=== PATIENT | female | born 2000 | race Caucasian/White ===

== ENCOUNTER 2022-11-26 12:15 | Emergency (ER) | payer OTHER ==
[2022-11-26] MEDS ORDERED: SODIUM CHLORIDE 0.9% 1,000 ML IV STA (12:53)
[2022-11-26] MEDS ORDERED: KETOROLAC 30 MG/ML VIAL IVP STA (12:54)
[2022-11-26 13:33] LABS: BASOPHILS # (AUTO) 0.1 10^3/uL (0.0-0.1); BASOPHILS % (AUTO) 0.6 %; EOSINOPHILS # (AUTO) 0.2 10^3/uL (0.0-0.7); EOSINOPHILS % (AUTO) 1.5 %; HCT - HEMATOCRIT 45.2 % (37.0-47.0); LYMPHOCYTES # (AUTO) 2.1 10^3/uL (1.5-3.5); LYMPHOCYTES % (AUTO) 17.6 %; MEAN CORPUSCULAR HEMOGLOBIN 30.5 pg (27.0-31.0); MEAN CORPUSCULAR HGB CONC 33.2 g/dL (32.0-36.0); MEAN CORPUSCULAR VOLUME 92.1 fL (81.0-99.0); MEAN PLATELET VOLUME 9.7 fL (7.9-10.8); NEUTROPHILS # (AUTO) 8.5 10^3/uL (1.5-6.6); PLT - PLATELET COUNT 354 10^3/uL (130-450); RED BLOOD COUNT 4.91 10^6/uL (4.20-5.40); WHITE BLOOD COUNT 11.9 x10^3/uL (4.8-10.8)
[2022-11-26 13:40] LABS: BILIRUBIN,URINE NEGATIVE (NEGATIVE); GLUCOSE, URINE (UA) NEGATIVE (NEGATIVE); KETONES,URINE (UA) NEGATIVE (NEGATIVE); LEUKOCYTE ESTERASE, URINE NEGATIVE (NEGATIVE); NITRITE,URINE NEGATIVE (NEGATIVE); OCCULT BLOOD,URINE MODERATE (NEGATIVE); PROTEIN,URINE NEGATIVE (NEGATIVE); UROBILINOGEN,URINE 0.2 (NORMAL) E.U./dL (NORMAL)
[2022-11-26 13:42] LABS: CLARITY,URINE CLEAR (CLEAR); HCG UR QUAL NEGATIVE
[2022-11-26 13:43] LABS: ALBUMIN 4.5 g/dL (3.2-5.5); ALBUMIN/GLOBULIN RATIO 1.5 (1.0-2.2); BILIRUBIN,TOTAL 0.4 mg/dL (0.2-1.0); CALCIUM 9.8 mg/dL (8.5-10.3); CREATININE 0.7 mg/dL (0.6-1.3); POTASSIUM 4.2 mmol/L (3.5-4.5); TOTAL PROTEIN 7.6 g/dL (6.4-8.9)
[2022-11-26 13:51] LABS: BACTERIA,URINE Rare /HPF (None Seen); RBC,URINE 0-5 /HPF (0-5); SQUAMOUS EPITHELIAL CELL,UR FEW Squamous (<= Few); WBC,URINE 0-3 /HPF (0-5)
--- NOTE | 2022-11-26 14:35 | ED Physician Documentation ---
PD HPI ABD PAIN - Stated complaint Stated Complaint: RT ABD/BACK PX, - Chief complaint Chief Complaint: Abd Pain - History obtained from History obtained from: Patient - Additional information Additional information: Patient is a 22-year-old female with a history of PCOS and endometriosis presenting for evaluation of right lower quadrant abdominal pain. Patient reports pain feels crampy and has been worse since yesterday. She only has some discomfort during her menstrual cycle but this feels worse. Reports associated nausea. Usually the pain gets better as her. Stops of but her bleeding stopped yesterday and she continues to have some pain. She tried ibuprofen yesterday without improvement. She has not taken any medications today. Denies dysuria or vaginal discharge or concerns for STIs. Reports occasionally feeling some pain in her back. No fever, chest pain or shortness of air. Denies prior abdominal surgeries. Review of Systems Constitutional: denies: Fever Cardiac: denies: Chest pain / pressure Respiratory: denies: Dyspnea GI: reports: Abdominal Pain : denies: Dysuria, Discharge Neurologic: denies: Headache PD PAST MEDICAL HISTORY - Past Medical History Past Medical History: Yes Cardiovascular: None Respiratory: None Neuro: None Endocrine/Autoimmune: None GI: None MEDICAL EQUIPMENT TECHNICIAN: Endometriosis, Ovarian cysts : None HEENT: None Psych: Depression, Anxiety Musculoskeletal: None Derm: None - Past Surgical History Past Surgical History: Yes /MEDICAL EQUIPMENT TECHNICIAN: Endometrial ablation - Present Medications Home Medications: Ambulatory Orders Medication Instructions Recorded Confirmed Ferrous Sulfate [Feosol] 325 mg PO DAILY 11/26/22 11/26/22 Medroxyprogesterone Acetate 10 mg PO DAILY 11/26/22 11/26/22 [Provera] Venlafaxine ER [Effexor ER] 75 mg PO DAILY 11/26/22 11/26/22 metFORMIN [Glucophage] 500 mg PO DAILY 11/26/22 11/26/22 - Allergies Allergies/Adverse Reactions: Allergies Allergy/AdvReac Type Severity Reaction Status Date / Time oxycodone AdvReac Itching Verified 11/26/22 12:25 - Social History Does the pt smoke?: No Smoking Status: Never smoker Does the pt drink ETOH?: Yes Does the pt have substance abuse?: Yes Substance Use and Type: Marijuana, CBD oil / Products - Immunizations Immunizations are current?: Yes PD ED PE NORMAL - General General: Alert and oriented X 3, No acute distress, Well developed/nourished - HEENT HEENT: Atraumatic, Moist mucous membranes - Neck Neck: Supple, no meningeal sign - Cardiac Cardiac: RRR, No murmur - Respiratory Respiratory: No respiratory distress, Clear bilaterally - Abdomen Abdomen: Normal bowel sounds, Soft, Non distended, Other (Right lower quadrant tenderness to palpation, no rebound, no guarding) - Back Back: No CVA TTP - Derm Derm: Warm and dry - Neuro Neuro: Normal speech Results - Vitals Vitals: Vital Signs - 24 hr 11/26/22 11/26/22 11/26/22 12:25 14:29 17:51 Temperature 37.2 C 35.6 C L 36 C L Heart Rate 78 73 73 Respiratory 18 16 18 Rate Blood Pressure 142/75 H 139/99 H O2 Saturation 98 100 100 Oxygen O2 Source Room air - Labs Labs: Laboratory Tests 11/26/22 11/26/22 11/26/22 13:19 13:19 13:24 WBC 11.9 H RBC 4.91 Hgb 15.0 Hct 45.2 MCV 92.1 MCH 30.5 MCHC 33.2 RDW 13.0 Plt Count 354 MPV 9.7 Neut # (Auto) 8.5 H Lymph # (Auto) 2.1 [place] # (Auto) 1.0 Eos # (Auto) 0.2 Baso # (Auto) 0.1 Absolute Nucleated RBC 0.00 Nucleated RBC % 0.0 Sodium 137 Potassium 4.2 Chloride 104 Carbon Dioxide 23 Anion Gap 10.0 BUN 8 Creatinine 0.7 Estimated GFR (MDRD) 105 Glucose 88 Calcium 9.8 Total Bilirubin 0.4 AST 18 ALT 35 Alkaline Phosphatase 77 Total Protein 7.6 Albumin 4.5 Globulin 3.1 Albumin/Globulin Ratio 1.5 Lipase 21 Urine Color YELLOW Urine Clarity CLEAR Urine pH 6.0 Ur Specific [place] 1.015 Urine Protein NEGATIVE Urine Glucose (UA) NEGATIVE Urine Ketones NEGATIVE Urine Occult Blood MODERATE H Urine Nitrite NEGATIVE Urine Bilirubin NEGATIVE Urine Urobilinogen 0.2 (NORMAL) Ur Leukocyte Esterase NEGATIVE Urine RBC 0-5 Urine WBC 0-3 Ur Squamous Epith Cells FEW Squamous Urine Bacteria Rare Ur Microscopic Review INDICATED Urine Culture Comments NOT INDICATED Urine HCG, Qual NEGATIVE PD Medical Decision Making - ED course Complexity details: reviewed results, re-evaluated patient, d/w patient ED course: Patient is a 22-year-old female with a history of endometriosis and PCOS presenting for evaluation of right lower abdominal pain. Has mild tenderness noted on exam which improved with IV Toradol. CBC, chemistries, urine analysis were obtained and reviewed and without significant findings other than mildly elevated white count of 11,000. Ultrasound was obtained which does not show any right-sided ovarian cyst but there is a left-sided ovarian cyst. There is good Doppler flow Bligh laterally and clinically her exam does not suggest torsion. A CT scan was also obtained which does not show signs of appendicitis. Patient has been feeling well here and is eager to go home. She understands need for close follow-up as well as concerning symptoms to return for. 1433 - Patient resting comfortably. Reviewed labs with her. Aware of plan for ultrasound and CT. Departure - Departure Disposition: Home, Self Care Clinical Impression: RLQ abdominal pain, Left ovarian cyst Condition: Stable Instructions: ED Abdominal Pain Female Non-Specific Abdominal Pain, ED Cyst Ovarian Follow-Up: [facility] [Provider Group] Comments: Your CT scan and ultrasound do not show any irregularities in the right lower part of your abdomen to explain your symptoms. You do have a cyst on your left ovary. There is good flow to both ovaries. I have included the name of the women's health clinic that you can call for follow-up regarding your ovarian cyst as well as for your history of PCOS and endometriosis. Please continue with anti-inflammatories such as ibuprofen or acetaminophen. Return to the ER with any worsening symptoms. Forms: PCP List Discharge Date/Time: 11/26/22 17:51
[2022-11-26 15:12] VITALS: BP 139/99; O2SAT 100
[2022-11-26] MEDS ORDERED: iohexoL-300 100 ML VIAL IVP ONE (16:32)
--- NOTE | 2022-11-26 16:45 | Ultrasound Report ---
PROCEDURE: Pelvic w/Doppler Complete INDICATIONS: R sided pain/PCOS TECHNIQUE: Real-time transabdominal scanning was performed of the pelvic organs, with image document ation. COMPARISON: None FINDINGS: Uterus: Uterus is anteverted and normal in size at 10.6 x 3.7 x 6.1 cm. The myometrium is homogeneo us. The endometrium measures 4.9 mm in combined thickness. Ovaries: The right ovary measures 3.2 x 2.0 x 2.0 cm, with a calculated ovarian volume of 6.7 cc. T he left ovary measures 4.5 x 2.6 x 3.5 cm, with a calculated ovarian volume of 21.4 cc. The ovaries have a normal sonographic appearance. Left ovarian cyst measures 2.2 x 1.7 x 2.8 No adnexal masses are seen. Both ovaries have appropriate vascularity Other: No free pelvic fluid. IMPRESSION: Left ovarian simple cyst without evidence of torsion Reviewed by: Mateus Boles MD on 11/26/2022 3:44 PM PRASHANT Approved by: Mateus Boles MD on 11/26/2022 3:44 PM AKDT Station ID: [id number]
--- NOTE | 2022-11-26 16:55 | CT Report ---
PROCEDURE: ABDOMEN/PELVIS W INDICATIONS: R sided pain CONTRAST: 100mL Omni 300 TECHNIQUE: After the administration of IV contrast, 5 mm thick sections acquired from the diaphragms to the symp hysis. 5 mm thick coronal and sagittal reformats were acquired. For radiation dose reduction, the f ollowing was used: automated exposure control, adjustment of mA and/or kV according to patient size. COMPARISON: PELVIC ultrasound from the same date. FINDINGS: Image quality: Excellent. Lung bases and heart: Unremarkable. Liver: No solid mass. Moderate to severe hepatic steatosis is seen, no discrete hepatic lesion. Gallbladder and biliary tree: Bladder is within normal limits. Spleen: No splenomegaly. Pancreas: No pancreatic ductal dilation. Adrenals: No adrenal nodule. Kidneys and ureters: No hydronephrosis. No renal cystic lesion which requires follow up. No solid mas s. Bowel and peritoneum: No bowel distension. No pathologic free fluid. Appendix is visualized and is wi thin normal limits. Lymph nodes: No central or retroperitoneal adenopathy. Vessels: No infrarenal aortic aneurysm. PELVIS Reproductive organs: Unremarkable. Simple appearing left ovarian cyst is seen better evaluated on pel naveen ultrasound from the same day. Bladder: No abnormal wall thickening, accounting for underdistension. Pelvic lymph nodes: No pelvic adenopathy by size criteria. Bones: No aggressive osseous abnormality. Other: No significant ventral or inguinal hernia. IMPRESSION: 1. Normal appendix. No bowel obstruction or abnormal bowel wall thickening. No abscess collection. No free fluid of free air. 2. Moderate to severe hepatic steatosis. No discrete hepatic lesion. Normal-appearing gallbladder. No biliary ductal dilatation. 3. Simple appearing left ovarian cyst better evaluated on pelvic ultrasound study. Reviewed by: Derrek Khanna MD on 11/26/2022 4:54 PM PDT Approved by: Derrek Khanna MD on 11/26/2022 4:54 PM PDT Station ID: [id number]
== END 2022-11-26 17:51 | disposition home or self-care (01) ==
LOC: ED 12:15
DX: R10.31 Right lower quadrant pain (principal); N83.292 Other ovarian cyst, left side
CPT/HCPCS: 36415; 74177; 76856; 80053; 81001; 81025; 83690; 85025; 93975; 96374; 99283; 99284; Q9967; 81003; 87086

== ENCOUNTER 2023-03-19 16:06 | Outpatient (CLI) | payer OTHER ==
[2023-03-19 20:44] LABS: BASOPHILS # (AUTO) 0.1 10^3/uL (0.0-0.1); BASOPHILS % (AUTO) 0.5 %; EOSINOPHILS # (AUTO) 0.2 10^3/uL (0.0-0.7); EOSINOPHILS % (AUTO) 1.4 %; HCT - HEMATOCRIT 43.4 % (37.0-47.0); HGB - HEMOGLOBIN 14.3 g/dL (12.0-16.0); LYMPHOCYTES # (AUTO) 2.9 10^3/uL (1.5-3.5); LYMPHOCYTES % (AUTO) 24.3 %; MEAN CORPUSCULAR HGB CONC 32.9 g/dL (32.0-36.0); MEAN CORPUSCULAR VOLUME 91.2 fL (81.0-99.0); MEAN PLATELET VOLUME 10.3 fL (7.9-10.8); MONOCYTES % (AUTO) 8.3 %; NEUTROPHILS # (AUTO) 7.7 10^3/uL (1.5-6.6); NEUTROPHILS % (AUTO) 65.1 %; PLT - PLATELET COUNT 359 10^3/uL (130-450); RED BLOOD COUNT 4.76 10^6/uL (4.20-5.40); RED CELL DISTRIBUTION WIDTH 13.1 % (12.0-15.0); WHITE BLOOD COUNT 11.8 x10^3/uL (4.8-10.8)
[2023-03-19 20:48] LABS: BILIRUBIN,URINE NEGATIVE (NEGATIVE); CLARITY,URINE CLEAR (CLEAR); GLUCOSE, URINE (UA) NEGATIVE (NEGATIVE); KETONES,URINE (UA) NEGATIVE (NEGATIVE); LEUKOCYTE ESTERASE, URINE NEGATIVE (NEGATIVE); NITRITE,URINE NEGATIVE (NEGATIVE); OCCULT BLOOD,URINE SMALL (NEGATIVE); PROTEIN,URINE NEGATIVE (NEGATIVE); UROBILINOGEN,URINE 0.2 (NORMAL) E.U./dL (NORMAL)
[2023-03-19 20:58] LABS: BACTERIA,URINE Moderate /HPF (None Seen); EPITHELIAL CELLS,UR FEW Transitional /HPF (<= Few); MUCUS,URINE Moderate Strands; SQUAMOUS EPITHELIAL CELL,UR MOD Squamous (<= Few); WBC,URINE 0-3 /HPF (0-5)
[2023-03-21 03:10] LABS: HCV AB Non Reactive (Non Reactive); HIV SCREEN 4TH GENERATION Non Reactive (Non Reactive)
[2023-03-21 05:12] LABS: HBsAG SCREEN Negative (Negative); RPR Non Reactive (Non Reactive)
[2023-03-21 08:10] LABS: VARICELLA-ZOSTER AB IGG <135 index (Immune >165)
== END 2023-03-19 16:07 | disposition home or self-care (01) ==
LOC: LAB.N 16:06
PROVIDERS: ATTEND Obstetrics & Gynecology
DX: Z34.90 Encounter for supervision of normal pregnancy, unspecified, unspecified trimester (principal)
CPT/HCPCS: 36415; 81001; 85025; 86592; 86762; 86787; 86803; 86850; 86900; 86901; 87086; 87340; 87389

== ENCOUNTER 2023-03-27 13:05 | Outpatient (CLI) | payer OTHER ==
--- NOTE | 2023-03-27 15:59 | Ultrasound Report ---
PROCEDURE: OB First Trimester w/TV INDICATIONS: POSITIVE TEST OUTSIDE/PRIOR DATING DATA: Last menstrual period (LMP): 01/30/2023. LMP-based estimated date of delivery (DYLAN): 11/06/2023. First dating scan (date and location): 03/27/2023. Estimated date of delivery (DYLAN) from first dating scan: 11/07/2023. TECHNIQUE: Real-time scanning was performed of the fetus and maternal pelvic organs, with image documentation. Endovaginal scanning was also performed to better visualize the fetus and maternal ovaries. COMPARISON: None. FINDINGS: Intrauterine gestational sac present. Embryo: Single living intrauterine gestation identified with estimated sonographic gestational age o f approximately 7 weeks and 6 days based off crown-rump length measurement of 1.49 cm. This correlate s with the 58.8 percentile. Heart rate: 160 bpm. Other: No perigestational fluid collection. Measurement variability in dating: +/- 4 weeks by LMP, +/- 7 days by mean sac diameter (use before 6 weeks gestation if crown-rump length not able to be measured), +/- 5 days by crown-rump length (6-12 weeks gestation). Maternal organs: Ovaries appear within normal limits. IMPRESSION: Single living intrauterine gestation with estimated sonographic gestational age of approximately 7 we eks and 6 days based off crown-rump length measurement. Estimated date of delivery is approximately . Recommend routine second trimester anatomy screening survey. Reviewed by: Joaquin Silva MD on 03/27/2023 3:57 PM PST Approved by: Joaquin Silva MD on 03/27/2023 3:57 PM PST Station ID: [id number]
== END 2023-03-27 13:06 | disposition home or self-care (01) ==
LOC: DI 13:05
PROVIDERS: ATTEND Obstetrics & Gynecology
DX: Z34.91 Encounter for supervision of normal pregnancy, unspecified, first trimester (principal)

== ENCOUNTER 2023-04-24 08:00 | Outpatient (CLI) | payer OTHER ==
[2023-04-24 15:56] LABS: BILIRUBIN,URINE NEGATIVE (NEGATIVE); GLUCOSE, URINE (UA) NEGATIVE (NEGATIVE); KETONES,URINE (UA) NEGATIVE (NEGATIVE); LEUKOCYTE ESTERASE, URINE NEGATIVE (NEGATIVE); NITRITE,URINE NEGATIVE (NEGATIVE); OCCULT BLOOD,URINE NEGATIVE (NEGATIVE); PROTEIN,URINE NEGATIVE (NEGATIVE); UROBILINOGEN,URINE 0.2 (NORMAL) E.U./dL (NORMAL)
[2023-04-24 16:10] LABS: BACTERIA,URINE Few /HPF (None Seen); CLARITY,URINE CLEAR (CLEAR); RBC,URINE None Seen /HPF (0-5); SQUAMOUS EPITHELIAL CELL,UR MANY Squamous (<= Few); WBC,URINE 0-3 /HPF (0-5)
[2023-04-24 20:19] LABS: CHLAMYDIA TRACHOMATIS DNA NEGATIVE (NEGATIVE); NEISSERIA GONORRHOEAE DNA NEGATIVE (NEGATIVE); TRICHOMONAS VAGINALIS DNA NEGATIVE (NEGATIVE)
== END 2023-04-24 23:59 | disposition home or self-care (01) ==
LOC: LAB.WC 08:00
PROVIDERS: ATTEND Obstetrics & Gynecology
DX: Z34.90 Encounter for supervision of normal pregnancy, unspecified, unspecified trimester (principal)
CPT/HCPCS: 81001; 87086; 87491; 87591; 87661

== ENCOUNTER 2023-05-16 08:00 | Outpatient (CLI) | payer OTHER ==
[2023-05-16 17:33] LABS: BILIRUBIN,URINE NEGATIVE (NEGATIVE); GLUCOSE, URINE (UA) NEGATIVE (NEGATIVE); KETONES,URINE (UA) NEGATIVE (NEGATIVE); LEUKOCYTE ESTERASE, URINE NEGATIVE (NEGATIVE); NITRITE,URINE NEGATIVE (NEGATIVE); OCCULT BLOOD,URINE NEGATIVE (NEGATIVE); PH,URINE 6.5 PH (5.0-7.5); PROTEIN,URINE NEGATIVE (NEGATIVE); UROBILINOGEN,URINE 0.2 (NORMAL) E.U./dL (NORMAL)
[2023-05-16 17:58] LABS: BACTERIA,URINE Many /HPF (None Seen); CLARITY,URINE CLEAR (CLEAR); RBC,URINE 0-5 /HPF (0-5); SQUAMOUS EPITHELIAL CELL,UR MANY Squamous (<= Few); WBC,URINE 0-3 /HPF (0-5)
[2023-05-16 18:36] LABS: CREATININE,URINE 131.6 mg/dL; PROTEIN/CREATININE RATIO,URINE 0.1 (<=0.2)
== END 2023-05-16 23:59 | disposition home or self-care (01) ==
LOC: LAB.WC 08:00
PROVIDERS: ATTEND Obstetrics & Gynecology
DX: O09.91 Supervision of high risk pregnancy, unspecified, first trimester (principal)
CPT/HCPCS: 81001; 82570; 84156; 87086

== ENCOUNTER 2023-05-24 09:38 | Outpatient (CLI) | payer OTHER ==
[2023-05-24 20:08] LABS: ESTIMATED AVERAGE GLUCOSE 100 mg/dL (70-100); HEMOGLOBIN A1c% 5.1 % (4.27-6.07)
== END 2023-05-24 09:39 | disposition home or self-care (01) ==
LOC: LAB.N 09:38
PROVIDERS: ATTEND Obstetrics & Gynecology
DX: O09.91 Supervision of high risk pregnancy, unspecified, first trimester (principal)
CPT/HCPCS: 36415; 83036

== ENCOUNTER 2023-05-27 07:52 | Outpatient (CLI) | payer OTHER | END 2023-05-27 07:53 | disposition home or self-care (01) | LOC: LAB 07:52 | PROVIDERS: ATTEND Obstetrics & Gynecology | DX: O99.211 Obesity complicating pregnancy, first trimester (principal); E66.9 Obesity, unspecified | CPT/HCPCS: 36415; 82950 ==

== ENCOUNTER 2023-06-23 15:08 | Outpatient (CLI) | payer OTHER ==
--- NOTE | 2023-06-23 17:09 | Ultrasound Report ---
PROCEDURE: OB Anatomy Scan INDICATIONS: SUPERVISION OF HIGH RISK OUTSIDE/PRIOR DATING DATA: Last menstrual period (LMP): 01/30/2023. LMP-based estimated date of delivery (DYLAN): 11/06/2023. First dating scan (date and location): 03/27/2023. Estimated date of delivery (DYLAN) from first dating scan: 11/07/2023. TECHNIQUE: Real-time scanning was performed of the fetus, with image documentation and biometric measurements. COMPARISON: 03/27/2023 FINDINGS: General: A single living intrauterine gestation is present. Presentation: Variable Placenta: Placental position is posterior, without previa. Amniotic fluid index: 17.1 cm, within normal limits for gestational age. heart rate: 137 beats per minute. Maternal cervical canal: 5 cm long; normal length is 2.5 cm or more. biometrics: Biparietal diameter: 4.9 cm, 20 weeks and 5 days, 62 percentile Head circumference: 18.3 cm, 20 weeks and 5 days, 52 percentile Abdominal circumference: 17.3 cm, 22 weeks and 2 days, 92 percentile Femur length: 3.2 cm, 19 weeks and 6 days, 22 percentile Estimated gestational age from initial scan: 20 weeks and 3 days Composite gestational age from present scan: 20 weeks and 6 days Estimated weight and percentile: 398 g, 81 percentile Measurement variability in biometric dating: +/- 10 days from 12-20 weeks gestation, +/- 2 weeks from 20-30 weeks gestation, +/- 3 weeks at 30 weeks gestation or later. Anatomic survey: Neuro: Ventricles are normal at less than 10 mm. Cisterna magna is normal at 3-11 mm. Cerebellum is normal in size and morphology. Nuchal skin fold: Normal at less than 6 mm between 14 and 20 weeks gestational age. Face: Nose and lips, facial profile are normal. Spine: No evidence for spina bifida. Heart: 4-chambered heart is present, with normal ventricular outflow tracts. Diaphragm: Diaphragm is intact. Stomach: Left-sided stomach is present. Kidneys: No hydronephrosis. Normal is less than 5 mm in 2nd trimester, less than 7 mm in 3rd trimester. Cord: 3 vessel cord has orthotopic insertion. Bladder: Normal in size. Extremities: All 4 extremities are visualized. IMPRESSION: Living intrauterine gestation at 20 weeks and 3 days. Concordant biometry on today's study. Routine anatomic survey without significant abnormality. Normal JUDY. Reviewed by: Idris James MD on 06/23/2023 5:07 PM PDT Approved by: Idris James MD on 06/23/2023 5:07 PM PDT Station ID: [id number]
== END 2023-06-23 15:09 | disposition home or self-care (01) ==
LOC: DI 15:08
PROVIDERS: ATTEND Obstetrics & Gynecology
DX: O09.92 Supervision of high risk pregnancy, unspecified, second trimester (principal); Z3A.20 20 weeks gestation of pregnancy

== ENCOUNTER 2023-08-09 10:25 | Outpatient (CLI) | payer OTHER ==
[2023-08-09 18:45] LABS: HCT - HEMATOCRIT 35.1 % (37.0-47.0); HGB - HEMOGLOBIN 10.9 g/dL (12.0-16.0); MEAN CORPUSCULAR HEMOGLOBIN 29.3 pg (27.0-31.0); MEAN CORPUSCULAR HGB CONC 31.1 g/dL (32.0-36.0); MEAN CORPUSCULAR VOLUME 94.4 fL (81.0-99.0); MEAN PLATELET VOLUME 9.9 fL (7.9-10.8); RED BLOOD COUNT 3.72 10^6/uL (4.20-5.40); RED CELL DISTRIBUTION WIDTH 12.7 % (12.0-15.0); WHITE BLOOD COUNT 14.3 x10^3/uL (4.8-10.8)
== END 2023-08-09 10:26 | disposition home or self-care (01) ==
LOC: LAB.N 10:25
PROVIDERS: ATTEND Obstetrics & Gynecology
DX: O09.892 Supervision of other high risk pregnancies, second trimester (principal); O99.212 Obesity complicating pregnancy, second trimester
CPT/HCPCS: 36415; 82950; 85027; 86592

== ENCOUNTER 2023-09-03 14:32 | Outpatient (CLI) | payer OTHER ==
--- NOTE | 2023-09-03 21:47 | Ultrasound Report ---
PROCEDURE: OB Follow up INDICATIONS: UTERINE SIZE DATE DISCREPANCY OUTSIDE/PRIOR DATING DATA: Last menstrual period (LMP): 01/30/2023. LMP-based estimated date of delivery (DYLAN): 11/06/2023. First dating scan (date and location): 03/27/2023. Estimated date of delivery (DYLAN) from first dating scan: 11/07/2023. The below data below was generated using the clinical DYLAN of 11/06/2023 TECHNIQUE: Real-time scanning was performed of the fetus, with image documentation and biometric measurements. Endovaginal scanning: Not performed. COMPARISON: OB ultrasound 06/23/2023 FINDINGS: General: A single living intrauterine gestation is present. Presentation: Vertex Placenta: Placental position is posterior, without previa. Amniotic fluid index: 18.2 cm, within normal limits for gestational age. Largest pocket 5.6 cm. heart rate: 143 beats per minute. Maternal cervical canal: Not well seen. biometrics: Biparietal diameter: 8.2 cm, 33 weeks 0 days. 93rd percentile. Head circumference: 30.7 cm, 34 weeks 2 days. 94th percentile. Abdominal circumference: 30.2 cm, 34 weeks 1 day. 99th percentile. Femur length: 6.0 cm, 31 weeks 2 days. 49th percentile. Estimated gestational age from initial scan: 30 weeks 6 days Composite gestational age from present scan: 33 weeks 1 day Estimated weight and percentile: 215 4 g, 98th percentile Measurement variability in biometric dating: +/- 10 days from 12-20 weeks gestation, +/- 2 weeks from 20-30 weeks gestation, +/- 3 weeks at 30 weeks gestation or more. IMPRESSION: 1. [place] living intrauterine at 33 weeks 1 day based on today's ultrasound. This is con cordant with the prior ultrasound +/- 3 weeks. Fetus is in the 90th percentile for weight. This is co ncerning for macrosomia. Vertex position. 2. Normal placenta and amniotic fluid. Reviewed by: Keny Liriano MD on 09/03/2023 9:46 PM PDT Approved by: Keny Liriano MD on 09/03/2023 9:46 PM PDT Station ID: [id number]
== END 2023-09-03 14:33 | disposition home or self-care (01) ==
LOC: DI 14:32
PROVIDERS: ATTEND Obstetrics & Gynecology
DX: O26.843 Uterine size-date discrepancy, third trimester (principal); O99.213 Obesity complicating pregnancy, third trimester; Z3A.33 33 weeks gestation of pregnancy

== ENCOUNTER 2023-10-16 21:39 | Outpatient (CLI) | payer OTHER ==
--- NOTE | 2023-10-17 12:01 | Ultrasound Report ---
PROCEDURE: OB Follow up INDICATIONS: UTERINE SIZE DATE DISCREPENCY OUTSIDE/PRIOR DATING DATA: Last menstrual period (LMP): 01/30/2023. LMP-based estimated date of delivery (DYLAN): 11/06/2023. First dating scan (date and location): 03/27/2023. Estimated date of delivery (DYLAN) from first dating scan: 11/07/2023. TECHNIQUE: Real-time scanning was performed of the fetus, with image documentation and biometric measurements. COMPARISON: 09/03/2023 FINDINGS: General: A single living intrauterine gestation is present. Presentation: Vertex Placenta: Placental position is posterior, without previa. Amniotic fluid index: 21.9 cm, at the upper limit of normal for gestational age. heart rate: 136 beats per minute. biometrics: Biparietal diameter: 9.65 cm, 39 weeks and 3 days, 98.5 percentile Head circumference: 37.61 cm, greater than 99.5 percentile Abdominal circumference: 38.18 cm, greater than 99.5 percentile Femur length: 7.07 cm, 36 weeks and 2 days, 29.1 percentile Estimated gestational age from initial scan: 37 weeks Composite gestational age from present scan: 37 weeks and 6 days Estimated weight and percentile: 4286.7 g, greater than the 99.5 percentile Measurement variability in biometric dating: +/- 10 days from 12-20 weeks gestation, +/- 2 weeks from 20-30 weeks gestation, +/- 3 weeks at 30 weeks gestation or more. Other: Not applicable. IMPRESSION: Macrosomia. EFW is greater than 99.5 percentile JUDY is 21.9, at the upper limit of normal. Vertex presentation Reviewed by: Idris James MD on 10/17/2023 12:00 PM PDT Approved by: Idris James MD on 10/17/2023 12:00 PM PDT Station ID: [id number]
== END 2023-10-16 21:40 | disposition home or self-care (01) ==
LOC: DI 21:39
PROVIDERS: ATTEND Nurse Practitioner
DX: O26.843 Uterine size-date discrepancy, third trimester (principal); O36.63X0 Maternal care for excessive fetal growth, third trimester, not applicable or unspecified; Z3A.37 37 weeks gestation of pregnancy

== ENCOUNTER 2023-10-19 12:50 | Outpatient (CLI) | payer OTHER ==
[2023-10-19 13:39] VITALS: BP 127/73
[2023-10-19 13:46] LABS: RUPTURE OF MEMBRANES PLUS NEGATIVE (NEGATIVE)
--- NOTE | 2023-10-19 14:23 | PROVIDER PROGRESS NOTE ---
<Cori Platt - Last Filed: 10/19/23 14:31> - HPI Chief Complaint: Leakage of vaginal fluid Current : Current EDU 11/06/23 Gestation 37 Weeks and 3 Days 1 Para 0 Vital Signs Temperature 37.1 C 10/19/23 13:15 Heart Rate 98 10/19/23 13:15 Respiratory Rate 18 10/19/23 13:15 Blood Pressure 127/73 10/19/23 13:15 Temperature 37.1 C 10/19/23 13:15 Heart Rate 98 10/19/23 13:15 Respiratory Rate 18 10/19/23 13:15 Blood Pressure 127/73 10/19/23 13:15 O2 Saturation If not protocol: Oxygen Flow, liters/minute 23 yo presents to L&D at 37+3 weeks gestation for r/o rupture of membranes. Patient was at [employer] and felt she had been leaking fluid vaginally, wetting a spot on her underwear. No specific odor. Did not need to wear a pad. Doesn't feel like she has continued to leak but believes that may have been attributed to decreased activity. Baby active. No bleeding. Shara every 5- 6 minutes, believes they have became more intense today but continues to talk through them. GBS negative. - Exam ctx q 5-6 minutes, palpate mildly, soft resting tone. 2/80/-2, midposition, intact - Procedures OB Procedure Performed: NST NST Procedure: NST Procedure Start Date 10/19/23 Start Time 13:00 Stop Time 13:34 Vibroacoustic Stimulation Used No Patient States Movement Yes Reactive, category I Service Date of procedure: 10/19/23 - Plan Plan: Cervical exam essentially unchanged from clinic. ROM + negative. Story sounds inconsistent with rupture. Contractions continue q 5 minutes. Discussed with patient waiting on unit for repeat cervical exam in a few hours or discharge to home with labor precautions. Discharge desired. <Nay Bui - Last Filed: 10/20/23 07:50> - HPI Current : Current EDU 11/06/23 Gestation 37 Weeks and 3 Days 1 Para 0 Vital Signs Temperature 98.8 F 10/19/23 13:15 Heart Rate 98 10/19/23 13:15 Respiratory Rate 18 10/19/23 13:15 Blood Pressure 127/73 10/19/23 13:15 Temperature 98.8 F 10/19/23 13:15 Heart Rate 98 10/19/23 13:15 Respiratory Rate 18 10/19/23 13:15 Blood Pressure 127/73 10/19/23 13:15 O2 Saturation If not protocol: Oxygen Flow, liters/minute - Procedures NST Procedure: NST Procedure Start Date 10/19/23 Start Time 13:00 Stop Time 13:34 Vibroacoustic Stimulation Used No Patient States Movement Yes - Plan Plan: 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 I agree with her documentation. Nay Schofield MD
== END 2023-10-19 14:00 | disposition home or self-care (01) ==
LOC: WFO 12:50 → FBP 12:52 → WFO 14:00
PROVIDERS: ATTEND Obstetrics & Gynecology
DX: O99.891 Other specified diseases and conditions complicating pregnancy (principal); N89.8 Other specified noninflammatory disorders of vagina; O47.1 False labor at or after 37 completed weeks of gestation; Z3A.37 37 weeks gestation of pregnancy
CPT/HCPCS: 59025; 84112; 99215

== ENCOUNTER 2023-10-24 12:39 | Outpatient (CLI) | payer OTHER ==
[2023-10-24 13:07] VITALS: BP 120/74
[2023-10-24 13:37] VITALS: O2SAT 99
--- NOTE | 2023-10-24 13:53 | Ultrasound Report ---
PROCEDURE: OB Biophysical Profile INDICATIONS: Decreased movement OUTSIDE/PRIOR DATING DATA: Last menstrual period (LMP): 01/30/2023. LMP-based estimated date of delivery (DYLAN): 11/06/2023. First dating scan (date and location): 03/27/2023. Estimated date of delivery (DYLAN) from first dating scan: 11/07/2023. The below data below was generated using the clinical DYLAN of 11/06/2023 TECHNIQUE: Real-time scanning was performed of the fetus, with image documentation and biometric tk surements. Biophysical profile was also obtained. COMPARISON: 10/06/2023 FINDINGS: General: A single living intrauterine gestation is present. Presentation: Vertex Placenta: Placental position is posterior, without previa. Amniotic fluid index: 20.5 cm, within normal limits for gestational age. heart rate: 164 beats per minute. Maternal cervical canal: Closed biometrics: Estimated gestational age from initial scan: 38 weeks 1 day Biophysical profile: Tone: 2 points. Movement: 2 points. Respiration: 2 points. Largest pocket of fluid: 2 points. IMPRESSION: Single live intrauterine with ultrasound gestational age of 38 weeks 1 day. BPP 8 out of 8 Reviewed by: Cris Rousseau MD on 10/24/2023 1:52 PM PDT Approved by: Cris Rousseau MD on 10/24/2023 1:52 PM PDT Station ID: [id number]
--- NOTE | 2023-10-24 14:52 | PROVIDER PROGRESS NOTE ---
- HPI Chief Complaint: Decreased movement Current : Vital Signs Temperature 97.7 F 10/24/23 12:55 Heart Rate 94 10/24/23 12:55 Respiratory Rate 16 10/24/23 12:55 Blood Pressure 120/74 10/24/23 12:55 O2 Saturation 99 10/24/23 12:55 Temperature 97.7 F 10/24/23 12:57 Heart Rate 95 10/24/23 12:57 Respiratory Rate 16 10/24/23 12:57 Blood Pressure 120/74 10/24/23 12:57 O2 Saturation 99 10/24/23 12:55 If not protocol: Oxygen Flow, liters/minute - Procedures OB Procedure Performed: NST Diagnosis/Indication for NST: Decreased movement NST Procedure: NST Procedure Start Time 13:00 Stop Time 13:34 Service Date of procedure: 10/24/23 (Read 10/24/2023) - Plan Plan: Patient is a 23-year-old G1, P0 at 38 weeks 1 day gestation presented today for decreased movement and pelvic pain. 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 She is not sure she would have, without them encouraging her. She now feels good movement. No contractions. No leaking or bleeding. FHT: 125 bpm baseline, moderate ability, accelerations present, no decelerations. Reactive NST. [place]: Quiescent BPP: 8/8, amniotic fluid 20.5 cm Patient is very reassured and will follow-up as needed.
== END 2023-10-24 15:00 | disposition home or self-care (01) ==
LOC: WFO 12:39 → FBP 12:42 → WFO 15:00
PROVIDERS: ATTEND Obstetrics & Gynecology
DX: O36.8130 Decreased fetal movements, third trimester, not applicable or unspecified (principal); O99.891 Other specified diseases and conditions complicating pregnancy; R10.2 Pelvic and perineal pain; Z3A.38 38 weeks gestation of pregnancy
CPT/HCPCS: 59025; 99213; 99214

== ENCOUNTER 2023-10-30 07:55 | Inpatient (IN) | payer OTHER ==
[2023-10-30] MEDS ORDERED: TERBUTALINE 1 MG/ML VIAL SUBQ PRN (08:11)
[2023-10-30] MEDS ORDERED: miSOPROStoL 200 MCG TABLET PR PRN (08:11)
[2023-10-30] MEDS ORDERED: miSOPROStoL 200 MCG TABLET BC PRN (08:11)
[2023-10-30] MEDS ORDERED: METHYLERGONOVINE 0.2 MG/ML VIAL IM PRN (08:11)
[2023-10-30] MEDS ORDERED: OXYTOCIN 10 UNIT/ML VIAL IM PRN (08:11)
[2023-10-30] MEDS ORDERED: SODIUM CHLORIDE FLUSH 0.9% 10 ML SYRINGE IVP PRN (08:11)
[2023-10-30] MEDS ORDERED: CARBOPROST TROMETHAMINE 250 MCG/ML VIAL IM PRN (08:11)
[2023-10-30] MEDS ORDERED: lidocaine 1% 20 ML MDV ID PRN (08:11)
--- NOTE | 2023-10-30 08:17 | HISTORY & PHYSICAL EXAMINATION ---
Admit History - Visit Reason Visit Reason: Other (Induction of labor.) - : 1 Parity: 0 Premature: 0 Ectopic: 0 : 0 Care: positive: [facility] Risk/History: positive: Labor induction, Other (Maternal obesity, macrosmia) Smoking Status: Never smoker - Mother's Labs Mother's Blood Type: positive: A Mother's RH: positive: Positive GBS: positive: Group B Step Negative Rubella Status: positive: Non-immune - Other Maternal History Other Maternal History: HPI: This 23 yo @ 39 weeks by sure LMP and confirmed by 7+6 weeks ultrasound presented to [facility] for term gestation induction of labor. Upon arrival her cervix was 3/75/-3 and vertex with intact membranes. MALAGON SCRORE:6. We reviewed management options at length and patient desires induction of labor. She has been a patient of [facility] care for the duration of her which has remained uncomplicated except for maternal obesity and macrosomia. Discussed at length considerations related to macrosomia to include increased risk for cephalopelvic disproportion and shoulder dystocia. Will accept blood products in the event of an emergency. ROS: No Headache, visual changes or right upper quadrant abdominal pain. Denies significant N/V. Denies urinary urgency or dysuria. All other symptoms reviewed and were negative except per HPI. Labs: H&H 10.7 & 33.4 Last u/s EFW: 10/16/2023: EFW 99.5%, 4286.7g, JUDY 21.9cm @37weeks Total maternal weight gain: 35.6# as of 38 weeks 1hr gtt (08/09/23): 103 A1C 05/24/23: 5.1% Glucose profiling secondary to macrosomia: FBG > goal, 2 hr pp > goal OB Hx: G1: Current Medical Hx: No significant Surgical Hx: None Social Hx: Monogamous with male partner. Denies current use of alcohol or tobacco, marijuana or other recreational drugs. Reports that she is safe in current relationship. Family Hx: Denies family history of congenital anomalies, Cystic Fibrosis or chromosomal abnormalities Allergies: oxycodone Medications: PNV LMP: 01/30/23 DYLAN by LMP: 11/06/23 US:03/27/2023 @ 7+6 c/w LMP Final DYLAN:11/06/23 : Will Pre- Weight:272.4, up 20 pounds by 22 weeks. discussed. Reviewed again 08/17. BMI: 44.13 - declined to take LD-ASA. Blood type: A+ Antibody: NEGATIVE CBC: H/H 14.3/43.4 PLT 359 RUB: NON IMMUNE (equivocal 13) VZV: NON IMMUNE HBsAg: NEGATIVE HepC: NR RPR/AB-EIA: NR HIV: NR PAP:2022 GC/CT:04/24 Negative HSV: denies in self and partner Genetic testing: NIPT/quad/AFP: DECLINED Covid:had virus 01/2023, 1x vax with bad reaction, in hospital, abnormal ekg Flu:declines FAS: 06/22 Placenta: Posterior Cord:3VC JUDY: 17.1cm EFW:398g 81st%ile 50gm OGCT: 05/27 Early 1 hour - 106; 28wk 103 TDAP: given 08/17 Breast Pump: given 07/31 RPR - NR 3rd trimester PLT 338 HBG 10.9 HCT 35.1 Physical exam: Normocephalic, atraumatic Heart RRR w/o M/G/R Lungs CTAB Abdomen gravid, soft, nontender. EFW 4500g FHR baseline 130's, moderate variability, + accelerations, no decelerations Irregular contractions, resting tone soft. SVE 3/50/-3 , vertex, intact membranes intact Bilateral LE's no edema Mood is good. Assessment: 23 yo @ 39 weeks gestation by 7+6 wk U/S FHR 130's Cat I GBS NEG EFW 4500g Increased hemorrhage risk. Plan: Admit to [facility] for term induction of labor Initiate pitocin per unit protocol for adequate uterine contractions. Continuous monitoring Jacuzzi PRN. Nitrous oxide PRN. Epidural PRN Maternal Request. Second IV placement T&C 2 units (hold) Patient verbally consents to my participation in her care in my role as a student nurse autotransfusionist. AMILCAR Hand, Student Nurse Pavilion Cutter - NST Procedure NST Procedure Start Time 12:55 Stop Time 13:25 Meds/Allgy - Home Medications Home Medications: Ambulatory Orders Medication Instructions Recorded Confirmed Ferrous Sulfate [Feosol] 325 mg PO DAILY 11/26/22 11/26/22 Medroxyprogesterone Acetate 10 mg PO DAILY 11/26/22 11/26/22 [Provera] Venlafaxine ER [Effexor ER] 75 mg PO DAILY 11/26/22 11/26/22 metFORMIN [Glucophage] 500 mg PO DAILY 11/26/22 11/26/22 - Allergies Allergies/Adverse Reactions: Allergies Allergy/AdvReac Type Severity Reaction Status Date / Time oxycodone AdvReac Itching Verified 11/26/22 12:25 Plan for Labor - Plan For Labor I expect patient to be DC'd or transferred within 96 hours.: Yes
[2023-10-30] MEDS ORDERED: SODIUM CHLORIDE FLUSH 0.9% 10 ML SYRINGE IVP SCH (09:00)
[2023-10-30 09:35] LABS: BASOPHILS # (AUTO) 0.1 10^3/uL (0.0-0.1); BASOPHILS % (AUTO) 0.4 %; EOSINOPHILS # (AUTO) 0.2 10^3/uL (0.0-0.7); EOSINOPHILS % (AUTO) 1.1 %; HCT - HEMATOCRIT 33.4 % (37.0-47.0); HGB - HEMOGLOBIN 10.7 g/dL (12.0-16.0); LYMPHOCYTES # (AUTO) 2.6 10^3/uL (1.5-3.5); LYMPHOCYTES % (AUTO) 18.8 %; MEAN CORPUSCULAR HEMOGLOBIN 26.9 pg (27.0-31.0); MEAN CORPUSCULAR VOLUME 83.9 fL (81.0-99.0); MEAN PLATELET VOLUME 10.1 fL (7.9-10.8); MONOCYTES # (AUTO) 1.2 10^3/uL (0.0-1.0); MONOCYTES % (AUTO) 8.4 %; NEUTROPHILS # (AUTO) 9.7 10^3/uL (1.5-6.6); NEUTROPHILS % (AUTO) 70.6 %; PLT - PLATELET COUNT 373 10^3/uL (130-450); RED BLOOD COUNT 3.98 10^6/uL (4.20-5.40); RED CELL DISTRIBUTION WIDTH 14.3 % (12.0-15.0); WHITE BLOOD COUNT 13.8 x10^3/uL (4.8-10.8)
[2023-10-30] MEDS: OXYTOCIN/SODIUM CHLORIDE 500 ML IV SCH (10:39)
[2023-10-30] MEDS: LACTATED RINGERS 1,000 ML IV STA (10:40)
[2023-10-30] MEDS ORDERED: LACTATED RINGERS 1,000 ML IV SCH (13:00)
--- NOTE | 2023-10-30 14:39 | PHARMACY PROGRESS NOTE ---
- Best Possible Medication History Admit Date and Time: 10/30/23 0811 Processed by: Pharmacy Patient Interview: Completed Secondary Source(s): Caregiver, Insurance records (Prescription insurance records reviewed and RN spoke directly to pt and communicated to pharmacist) As the person ultimately responsible for medication therapy, providers are able to order a medication from an existing home medication list in [facility] via the "Reconcile Routine" prior to Confirmation of that medication by server support technician. Such practice is discouraged except when the physician, in their clinical judgment, deems that a medical need exists for a medication without regard to previous use.
--- NOTE | 2023-10-30 17:01 | ANESTHESIA ---
Pre-Anesthesia VS, & Labs - Diagnosis Induction of labor - Procedure Vaginal delivery Vital Signs: Temp Pulse Resp BP Pulse Ox O2 Flow Rate 36.6 C 83 16 117/69 10/30/23 08:50 10/30/23 08:50 10/30/23 08:50 10/30/23 08:50 Height: 5 ft 6 in Weight (kg): 142.882 kg Body Mass Index: 50.8 BMI Classification: Morbidly Obese - NPO Last Fluid Intake: clear liquids - Is Patient ?: Yes - Lab Results Current Lab Results: Laboratory Tests 10/30/23 09:15: WBC 13.8 H, RBC 3.98 L, Hgb 10.7 L, Hct 33.4 L, MCV 83.9, MCH 26.9 L, MCHC 32.0, RDW 14.3, Plt Count 373, MPV 10.1, Neut # (Auto) 9.7 H, Lymph # (Auto) 2.6, [place] # (Auto) 1.2 H, Eos # (Auto) 0.2, Baso # (Auto) 0.1, Absolute Nucleated RBC 0.00, Nucleated RBC % 0.0 10/30/23 09:15: Blood Type A POSITIVE, Antibody Screen NEGATIVE, Crossmatch IS Only See Detail Lab results reviewed: Yes Fish Bones: 10/30/23 09:15 Home Medications and Allergies Active Medications Acetaminophen (Acetaminophen 500 Mg Tablet) 1,000 mg PO Q8H PRN PRN Reason: Mild Pain or Fever>38C(100.4F) Carboprost Tromethamine (Carboprost Tromethamine 250 Mcg/Ml Vial) 250 mcg IM .ONCE PRN PRN Reason: Hemorrhage Lactated Ringer's (Lr) 500 mls @ 999 mls/hr IV PRN PRN PRN Reason: distress Oxytocin/Sodium Chloride (Pitocin/Sodium Chloride) 500 mls @ 999 mls/hr IV PRN PRN; Protocol PRN Reason: POST- HEMORR PREVENTION Tranexamic Acid (Tranexamic 1,000 Mg/100ml-Nacl) 1,000 mg in 100 mls @ 600 mls/hr IV Q30M PRN PRN Reason: EBL >1200mL and within 3hr Oxytocin/Sodium Chloride (Pitocin/Sodium Chloride) 500 mls @ 2 mls/hr IV TITR DOROTA; Protocol Last Titration: 10/30/23 14:10 Dose: 8 milliunit/min, 8 mls/hr Lactated Ringer's (Lr) 1,000 mls @ 0 mls/hr IV .Q0M [place] Lactated Ringer's (Lr) 1,000 mls @ 125 mls/hr IV .Q8H STA Stop: 10/30/23 20:57 Last Admin: 10/30/23 10:40 Dose: 125 mls/hr Lidocaine HCl (Lidocaine 1% 20 Ml Mdv) 20 ml ID .ONCE PRN PRN Reason: PERINEAL REPAIR Stop: 11/02/23 08:11 Methylergonovine Maleate (Methylergonovine 0.2 Mg/Ml Vial) 0.2 mg IM .ONCE PRN PRN Reason: Hemorrhage Misoprostol (Misoprostol 200 Mcg Tablet) 800 mcg MA .ONCE PRN PRN Reason: Hemorrhage Misoprostol (Misoprostol 200 Mcg Tablet) 800 mcg BC .ONCE PRN PRN Reason: Hemorrhage Oxytocin (Oxytocin 10 Unit/Ml Vial) 10 unit IM .ONCE PRN PRN Reason: Step One if no IV access. Sodium Chloride (Sodium Chloride Flush 0.9% 10 Ml Syringe) 10 ml IVP PRN PRN PRN Reason: NEEDED PER PROVIDER ORDERS Sodium Chloride (Sodium Chloride Flush 0.9% 10 Ml Syringe) 10 ml IVP Q8H [place] Terbutaline Sulfate (Terbutaline 1 Mg/Ml Vial) 0.25 mg SUBQ .ONCE PRN PRN Reason: Tachystole Ferrous Sulfate [Feosol] 325 mg PO DAILY 11/26/22 Allergies/Adverse Reactions: Allergies Allergy/AdvReac Type Severity Reaction Status Date / Time oxycodone AdvReac Itching Verified 11/26/22 12:25 Anes History & Medical History - Anesthetic History Anesthesia Complications: reports: No previous complications - Medical History Cardiovascular: reports: None Pulmonary: reports: None Gastrointestinal: reports: None Urinary: reports: None Neuro: reports: None Musculoskeletal: reports: None Endocrine/Autoimmune: reports: None Blood Disorders: reports: None Skin: reports: None Smoking Status: Never smoker Psychosocial: reports: No issues indicated History of Cancer?: No - Surgical History Gynecologic: reports: Endometrial ablation, Other (diagnostic lap) - Obstetrical History : 1 Parity: 0 Events: reports: Labor induction, Other (Maternal obesity, macrosmia) Exam General: Alert, Oriented x3, Cooperative Dental: WNL Mouth Openin Fingerbreadth Neck Mobility: Normal Mallampati classification: III Thyromental Distance: 4-6 cm Mental/Cognitive Status: Alert/Oriented X3, Normal for patient Plan Anesthesia Type: Epidural Consent for Procedure(s) Verified and Reviewed: Yes Code Status: Attempt Resuscitation ASA classification: 2-Mild systemic disease Is this case an emergency?: No
--- NOTE | 2023-10-30 18:58 | PROVIDER PROGRESS NOTE ---
Labor Progress Note - Uterine Monitoring Uterine Monitoring Mode: positive: External toco Contraction Frequency (min/apart): q2-4 Contraction Intensity: positive: Moderate to strong Uterine Resting Tone: positive: Soft - Monitoring Monitor Mode: positive: External ultrasound Heart Rate Baseline: 135 Heart Rate Variability: positive: Moderate (6-25 bmp) Accelerations: positive: Present, 15x15 Decelerations: positive: None Strip Review: positive: Category I - Vaginal Exam Dilation (in cm): 4-5 Effacement (%): 80 Station: -2 Cervical Position: Midposition - Labor Progress Note Labor Progress Note/Additional Text: S: IOL started this morning with oxytocin. Now at 8mu/min. and uterine monitoring limited titration of oxytocin. Breathing through contractions which have increased in intensity. Her is supportive at the bedside. O: FHR 130'-140's, no significant decelerations SVE 4-5/80/-2 A: 23yo @ 39+0 wks gestation by first trimester ultrasound Early labor. GBS negative P: AROM, clear, large amount clear fluid. macrosomia. internal monitors PRN as needed. Will encouraged rotation in bed on peanut ball after patient is comfortable with epidural. Anticipate . AMILCAR Hand, Student Nurse Production Line
[2023-10-30] MEDS: LACTATED RINGERS 1,000 ML IV SCH (19:00)
[2023-10-30] MEDS ORDERED: LIDOCAINE 2%-EPI 1:100000 20 ML MDV ONE (21:08)
[2023-10-30] MEDS ORDERED: ROPIVACAINE 0.2% 200 MG/100 ML BAG EP ONE (21:09)
[2023-10-30] MEDS ORDERED: ePHEDrine 50 MG/ML VIAL IVP PRN (21:53)
[2023-10-30] MEDS ORDERED: NALOXONE 0.4 MG/ML VIAL IVP PRN (21:53)
--- NOTE | 2023-10-30 23:40 | PROVIDER PROGRESS NOTE ---
Labor Progress Note - Uterine Monitoring Uterine Monitoring Mode: positive: External toco Contraction Frequency (min/apart): q2-3 Contraction Intensity: positive: Moderate to strong Uterine Resting Tone: positive: Soft - Monitoring Monitor Mode: positive: External ultrasound Heart Rate Baseline: 140 Heart Rate Variability: positive: Moderate (6-25 bmp) Accelerations: positive: Present, 15x15 Decelerations: positive: None Strip Review: positive: Category I - Vaginal Exam Dilation (in cm): 5 Effacement (%): 90 Station: -1 Cervical Position: Anterior - Labor Progress Note Labor Progress Note/Additional Text: S: Comfortable with epidural in place. Resting. O: FHR 140s, no significant decelerations SVE 5/-1, vertex. caput A: 89yo @ 39 wks gestation by 1st trimester ultrasound Active labor Ruptured, clear fluid macrosomia P: Maintain epidural for labor anesthesia IUPC placed. Goal MVU= 200-220. Okay to titrate oxytocin to max of 30mu/min with IUPC in place Reassess for cervical change in the next 5-6 hours. Will encouraged rotation in bed on peanut ball after patient is comfortable with epidural. Reviewed POC with on-call OBGYN. AMILCAR Hand, Student Nurse Floor Layer Tile
[2023-10-31] MEDS: LACTATED RINGERS 1,000 ML IV PRN (01:31)
[2023-10-31] MEDS: ROPIVACAINE 0.2% 200 MG/100 ML BAG EP PRN (04:00)
--- NOTE | 2023-10-31 06:09 | PROVIDER PROGRESS NOTE ---
Labor Progress Note - Uterine Monitoring Uterine Monitoring Mode: positive: IUPC Contraction Frequency (min/apart): q2 minutes Contraction Intensity: positive: Strong Uterine Resting Tone: positive: Soft - Monitoring Heart Rate Baseline: 140's Heart Rate Variability: positive: Moderate (6-25 bmp) Accelerations: positive: Present, 15x15 Decelerations: positive: None - Vaginal Exam Dilation (in cm): 9.5 Station: 0 - Labor Progress Note Labor Progress Note/Additional Text: S: Comfortable with epidural. Not feeling a ton of pressure. O: FHR 140s, no significant decelerations. SVE 9.5/0 by RN exam at 05:15 A: 23yo @39+1 wks gestation by fist trimester ultrasound Active labor Postdates GBS negative macrosomia. P: Recheck cervix at 6:15 (one hour after 9.5cm), if complete, allow to labor down x1 hour. . continuous monitoring now. Reviewed shoulder dystocia and pph precautions at length with patient, family and staff. AMILCAR Hand, Student Nurse Spray Gunner
[2023-10-31] MEDS ORDERED: ONDANSETRON 4 MG/2 ML VIAL ONE (07:18)
[2023-10-31] MEDS: TRANEXAMIC ACID IN NACL 1,000 MG/100 ML BAG IV PRN (08:31)
[2023-10-31] MEDS: OXYTOCIN/SODIUM CHLORIDE 500 ML IV PRN (08:41)
[2023-10-31] MEDS ORDERED: ONDANSETRON ODT 4 MG TABLET TL PRN (09:09)
[2023-10-31] MEDS ORDERED: VARICELLA VACCINE LIVE/PF 1,350 UNIT/0.5 ML VIAL SUBQ ONE (09:09)
[2023-10-31] MEDS ORDERED: HYDROCORTISONE 1% CREAM 28 GM TUBE PR PRN (09:09)
[2023-10-31] MEDS ORDERED: MEASLES,MUMPS & RUBELLA VACC 0.5 ML VIAL SUBQ ONE (09:09)
--- NOTE | 2023-10-31 09:18 | DELIVERY NOTE ---
Delivery Note - Labor Labor: positive: Augmented by ARM, Induced by ARM, Induced by oxytocin - Infant Delivery Method Infant Delivery Method: positive: Other (Vaginal delivery complicated by shoulder dystocia) - Presentation Presentation: positive: Vertex - Nuchal Cord Nuchal Cord: positive: None - Amniotic Fluid Description Amniotic Fluid Description: positive: Clear - Laceration Laceration: positive: 2nd degree, Perineal, Vaginal - Suture Suture Type: positive: Vicryl Suture Size: positive: 3-0 - Delivery Outcome Delivery Outcome: positive: Livebirth - [place]: positive: Suctioned, Stimulated, Warmed, [place] used, Warmer used sex: positive: Male - Cord Cord: positive: 3 vessels - Placenta Placenta: positive: Intact - Estimated Blood Loss Estimated Blood Loss (in cc): 400 - Post Delivery Events Post Delivery Events: positive: Shoulder dystocia - Delivery Comments (Free Text/Narrative) Delivery Comments (Free Text/Narrative): This 23 -year-old, G 1 P 0 @ 39+1 weeks gestation by 7+6 week ultrasound/ LMP presented @ 0800 on 10/30/2023 for elective term induction of labor. Cervix was 3/50/-3, Vertex presentation by romario's and exam. Espinosa score 6. GBS negative. Induction began with Pitocin, MAXIMUM INFUSION OF 23 mu/Min. FHR pattern demonstrated 130s -140s baseline in a category I prior to second stage. AROM occurred @ 17:54. Moderate amount of clear amniotic fluid. Normal labor course. Epidural placed upon maternal request She then progressed to complete/complete @ 0640 and second stage began. : Vaginal delivery of a viable male infant on 10/31/2023 @ 0807. Attempted delivery of the head was unsuccessful, despite gentle traction of the head. Shoulder dystocia was announced and asked for Bela position, Superpubic pressure, and attempted rotational maneuvers and removal of posterior shoulder. I attempted to remove the posterior arm, but was unable. The assistance OBGYN was needed to complete the delivery of the shoulder and body. See Dr. Bui's addendum. In total, 150 seconds elapse for delivery of head to delivery of body including resolution of shoulder dystocia. The was placed on maternal abdomen, cord immediately clamped and cut and passed to nursery resuscitation team. Apgars 5 & 7 @ 1 & 5 minutes. Cord segment clamped and handed to nursing team to obtain cord gasses. Cord blood collected. [place] weight: 4,894g. Fundal massage and gently cord traction applied for active management of the third stage, placenta delivered spontaneously and intact and appeared normal @ 0815. EBL 400. Placenta was WAS NOT sent to pathology. 30u Pitocin added to IV fluid and allowed to run freely for hemostais. Uterine massage was performed until uterus was deemed firm. Inspection of the perineum noted a second degree perineal laceration with vaginal extension. Repair completed by . See MD addendum. 1g TXA given during repair for increased bleeding from laceration. Needle and sponge counts were correct. Uterine fundus firm and there is no excessive bleeding. Tissues well approximated after repair. Family bonding well. Both mother and baby are in stable condition.
[2023-10-31] MEDS: IBUPROFEN 800 MG TABLET PO SCH (10:34)
[2023-10-31] MEDS: ACETAMINOPHEN 500 MG TABLET PO PRN (10:34)
[2023-10-31] MEDS: WITCH HAZEL/GLYCERIN 1 PAD TOP PRN (16:57)
--- NOTE | 2023-10-31 18:30 | PROVIDER PROGRESS NOTE ---
Subjective - Prog Note Date Prog Note Date: 10/31/23 Prog Note Time: 18:18 - Subjective Pt reports feeling: Improved Subjective: Patient reports she is doing well. Comfortable WITHOUT narcotic pain management Lochia appropriate. Denies heavy bleeding. Ambulating. Tolerating oral intake. Diet: Regular. Voiding without difficulty. Passing flatus. Endorses BM without discomfort. Patient is bonding with baby in room Breast feeding going okay. Continued RN support. States she feels great. Some discomfort around epidurl site. Denies feeling lightheaded, dizzy or excessively fatigued Objective - Vital Signs/Intake & Output Reviewed Vital Signs: Yes Vital Signs: Vital Signs x48h Temp Pulse Resp BP Pulse Ox 10/31/23 18:06 37.0 C 94 16 124/74 10/31/23 14:20 37.2 C 106 H 18 125/55 L 96 Intake & Output: Intake & Output 10/28/23 10/29/23 10/30/23 10/31/23 23:59 23:59 23:59 23:59 Intake Total 2306.501 4493.499 Output Total 2876 Balance 2306.501 1617.499 - Objective General Appearance: positive: No acute distress Eyes Bilateral: positive: Normal inspection Respiratory: positive: No respiratory distress Abdomen: positive: Other (FF below umbilicus) - Lab Results Fish Bones: 10/30/23 09:15 ABX Reporting Has patient been on IV antibiotics over the past 48 hours?: No Assessment/Plan - Problem List (1) Shoulder dystocia, delivered Impression: Resolved by MD. Baby now doing well in care of mother. (2) Vaginal delivery Impression: .Assessment and Plan 23yo s/p today on 10/31/2023. following elective IOL, shoulder dystocia and second degree perineal laceration - Routine - Anticipate discharge in 1-2 days. (3) Perineal laceration during delivery, condition Impression: Vaginal packing in place 4 hours after delivery for continued oozing post repair. Post removal, minimal bleeding. Routine care (4) () Impression: Continued RN support. (5) Anemia affecting first Impression: CBC tomorrow denies any feelings of dizziness/light headedness.
[2023-11-01 08:26] LABS: BASOPHILS % (AUTO) 0.3 %; EOSINOPHILS % (AUTO) 1.1 %; HCT - HEMATOCRIT 29.1 % (37.0-47.0); HGB - HEMOGLOBIN 9.3 g/dL (12.0-16.0); LYMPHOCYTES % (AUTO) 11.3 %; MEAN CORPUSCULAR HEMOGLOBIN 27.1 pg (27.0-31.0); MEAN CORPUSCULAR VOLUME 84.8 fL (81.0-99.0); MEAN PLATELET VOLUME 9.8 fL (7.9-10.8); MONOCYTES % (AUTO) 8.2 %; NEUTROPHILS % (AUTO) 78.6 %; PLT - PLATELET COUNT 301 10^3/uL (130-450); RED BLOOD COUNT 3.43 10^6/uL (4.20-5.40); RED CELL DISTRIBUTION WIDTH 14.5 % (12.0-15.0); WHITE BLOOD COUNT 21.6 x10^3/uL (4.8-10.8)
[2023-11-01 08:28] LABS: SLIDE REVIEW? Indicated
[2023-11-01 08:29] LABS: ABNORMAL LYMPHS % (MANUAL) 0 %
[2023-11-01 09:21] LABS: BAND NEUTROPHILS % (MANUAL) 2 %; DIFFERENTIAL COMMENT MANUAL DIFFERENTIAL; LYMPHOCYTES % (MANUAL) 12 %; MONOCYTES # (MANUAL) 1.3 10^3/uL (0.0-1.0); NEUTROPHILS # (MANUAL) 17.3 10^3/uL (1.5-6.6); RBC MORPHOLOGY (MULTIPLE) 1+ ANISOCYTOSIS (NORMAL); REACTIVE LYMPHS % (MANUAL) 2 %
[2023-11-01] MEDS: DOCUSATE SODIUM 100 MG CAPSULE PO SCH (10:19)
--- NOTE | 2023-11-01 13:51 | PROVIDER PROGRESS NOTE ---
Subjective - Prog Note Date Prog Note Date: 11/01/23 - Subjective Pt reports feeling: Improved Subjective: Comfortable. Appropriate lochia. Ambulating. Voiding. BM. Tolerating regular diet. and pumping well. Mood is good. Objective - Vital Signs/Intake & Output Reviewed Vital Signs: Yes Vital Signs: Vital Signs x48h Temp Pulse Resp BP Pulse Ox 11/01/23 08:00 98.2 F 93 18 132/86 H 97 Intake & Output: Intake & Output 10/29/23 10/30/23 10/31/23 11/01/23 23:59 23:59 23:59 23:59 Intake Total 2306.501 4493.499 Output Total 2876 1 Balance 2306.501 1617.499 -1 - Objective General Appearance: positive: No acute distress Eyes Bilateral: positive: EOMI Respiratory: positive: No respiratory distress Abdomen: positive: Non-tender Skin: positive: Color nml Extremities: positive: Non-tender Neurologic/Psychiatric: positive: Oriented x3 - Lab Results Fish Bones: 11/01/23 08:09 Other Labs: Lab Results x24hrs 11/01/23 Range/Units 08:09 WBC 21.6 H (4.8-10.8) x10^3/uL RBC 3.43 L (4.20-5.40) 10^6/uL Hgb 9.3 L (12.0-16.0) g/dL Hct 29.1 L (37.0-47.0) % MCV 84.8 (81.0-99.0) fL MCH 27.1 (27.0-31.0) pg MCHC 32.0 (32.0-36.0) g/dL RDW 14.5 (12.0-15.0) % Plt Count 301 (130-450) 10^3/uL MPV 9.8 (7.9-10.8) fL Neut # (Auto) Not Reportable Lymph # (Auto) Not Reportable [place] # (Auto) Not Reportable Eos # (Auto) Not Reportable Baso # (Auto) Not Reportable Absolute Nucleated RBC Not Reportable Total Counted 100 Band Neuts % (Manual) 2 (0 - 10) % Reactive Lymphs % (Man) 2 % Abnorm Lymph % (Manual) 0 % Nucleated RBC % Not Reportable Neutrophils # (Manual) 17.3 H (1.5-6.6) 10^3/uL Lymphocytes # (Manual) 3.0 (1.5-3.5) 10^3/uL Monocytes # (Manual) 1.3 H (0.0-1.0) 10^3/uL Eosinophils # (Manual) 0.0 (0-0.7) 10^3/uL Basophils # (Manual) 0.0 (0-0.1) 10^3/uL Differential Comment MANUAL DIFFERENTIAL Manual Slide Review Indicated RBC Morph Micro Appear 1+ ANISOCYTOSIS (NORMAL) Assessment/Plan - Problem List (1) care following vaginal delivery Impression: 23yo s/p 8/3, PPD#1 - Doing well - Anticipate discharge tomorrow (2) anemia Impression: Advised iron supplementation at home, she has taken in the past and tolerated well (3) Rubella non-immune status, delivered, current hospitalization Impression: MMR ordered
[2023-11-01] MEDS ORDERED: VARICELLA VACCINE LIVE/PF 1,350 UNIT/0.5 ML VIAL SUBQ ONE (13:57)
[2023-11-02 02:48] VITALS: O2SAT 99
--- NOTE | 2023-11-02 09:20 | Discharge Plan ---
Discharge Plan Problem Reviewed?: Yes Disposition: Home, Self Care Diet: Regular Activity Restrictions: No Restrictions Shower Restrictions: No Driving Restrictions: No Instruction Topics: Self Care, Breastfeed How To, Breastfeed Holds, Nutrition No Smoking: If you smoke, Please STOP! Call for help. Follow-up with: Cori Platt ARNP [Provider Admit Priv/Credential] -
--- NOTE | 2023-11-02 09:31 | DISCHARGE SUMMARY ---
Discharge Summary Admit Date: 10/30/23 Discharge Date: 11/02/23 Discharging Provider: Dr. Bowman Code Status: Attempt Resuscitation Condition at Discharge: Good Discharge Disposition: 01 Home, Self Care - DIAGNOSES Admission Diagnoses: Date of Admission: 10/30/2023 Date of Discharge: 11/02/2023 Diagnosis on admission: 1. 23 yo at 39 weeks gestation by 1st trimester ultrasound. 2. Maternal anemia 3. macrosomia Diagnosis on Discharge 1. 23 yo s/p VD 10/31/2023, PPD #2 2. 2nd degree perineal laceration 3. Exclusively 4. Anemia Brief History: She has been a patient of [facility] presented to [facility] for elective IOL at 39 weeks gestation. Known macrosomia. Vaginal delivery of a viable male infant on 10/31/2023 @ 0807 150 seconds elapse for delivery of head to delivery of body including resolution of shoulder dystocia. Apgars 5 & 7 @ 1 & 5 minutes. [place] weight: 4,894g. EBL 400cc. Second degree laceration with repair. She has been doing well in her course. She is ambulating and tolerating a regular diet. She is urinating without difficulty and her lochia is normal. Her pain is well controlled without narcotic management. Some increased tenderness to epidural site. She will be discharged to home today on day 2 and encouraged OTC iron and IBU, tylenol and stool softeners PRN. She in tends to follow up with [facility] in 1 week in clinic. She has been given precautions to call if she has any any new or worsening sx such as fevers, chills, abdominal pain, increasing bleeding, or foul smelling vaginal lochia. preeclamptic precautions reviewed as well. VZV: non-immune. Vaccine order placed. Rubella: non-immune. Vaccine order placed. AMILCAR Hand, Student Nurse [employer] - ALLERGIES Allergies/Adverse Reactions: Allergies Allergy/AdvReac Type Severity Reaction Status Date / Time oxycodone AdvReac Itching Verified 11/26/22 12:25 - MEDICATIONS Home Medications: Ambulatory Orders Medication Instructions Recorded Confirmed Ferrous Sulfate [Feosol] 325 mg PO DAILY 08/29/23 08/01/24 - PHYSICAL EXAM AT DISCHARGE General Appearance: positive: No acute distress Eyes Bilateral: positive: Normal inspection Cardiovascular: positive: Regular rate & rhythm Peripheral Pulses: positive: 2+ Abdomen: positive: Other (FF below U) Skin: positive: Color nml Extremities: positive: Non-tender - LABS Result Diagrams: 11/01/23 08:09 - QUALITY (Female Hip Fx Only) Was patient sent home on osteoporosis medication?: No - FOLLOW UP Follow Up: AMILCAR Hand - TIME SPENT Time Spent in Discharge (Minutes): 30
[2023-11-02] MEDS: VARICELLA VACCINE LIVE/PF 1,350 UNIT/0.5 ML VIAL SUBQ ONE (10:50)
[2023-11-02] MEDS: MEASLES,MUMPS & RUBELLA VACC 0.5 ML VIAL SUBQ ONE (10:51)
--- NOTE | 2023-11-02 11:45 | Labor Flowsheet ---
Labor Flowsheet Datetime Report Generated by CPN: 11/02/2023 11:45 Datetime: 11/02/2023 09:06 VITAL SIGNS NBP Sys/Stephania/Mean (mmHg): 126 : 76 : 88 Pulse: 88 Datetime: 11/01/2023 08:19 SpO2 (%): 97 Datetime: 10/31/2023 10:34 PAIN Pain Scale: 8 Pain Presence: Constant Pain Type: Ache Pain Location: Back Pain Goal: 5 Pain Relief Measures: Pain Medication Given Datetime: 10/31/2023 08:50 PATIENT CARE IV/Blood Work: New IV Bag Hung Datetime: 10/31/2023 08:40 MEDICATIONS Pitocin (milliunits): Decreased to @ 125 Datetime: 10/31/2023 08:31 Medication Comments: TXA 1 Gram Datetime: 10/31/2023 08:10 Stage of : Recovery Datetime: 10/31/2023 08:09 LaborFlag: Labor Datetime: 10/31/2023 08:03 Comments: 110-160 Datetime: 10/31/2023 08:00 UTERINE ACTIVITY Monitor Mode: Palpation Frequency (min): 2-3 Quality: Strong Duration (sec): 70-110 Resting Tone (Palpate): Relaxed ASSESSMENT A 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 FHR Baseline Rate : 130 Variability: Moderate 6-25 bpm Decelerations: None Category: Category I Datetime: 10/31/2023 07:30 Accelerations: 15X15 Datetime: 10/31/2023 07:15 Pitocin Checklist: At Least 1 Acceleration of 15 bpm x 15 Seconds in 30 Minutes or Adequate Variabi lity; No More than 1 Late Deceleration Occurred in Past 30 Minutes; No More than 2 Variable Decelerat ions > 60 Seconds in Duration and decreasing >60 bpm in 30 minutes; No More than 5 Uterine Contractio ns in 10 Minutes for any 20 Minute Interval; Uterus Palpates Soft between Contractions Datetime: 10/31/2023 06:45 FHR Baseline Changes: No Baseline Change Oxygen Method: Nasal Cannula Datetime: 10/31/2023 06:40 Communication Comments: pt pushing Datetime: 10/31/2023 06:16 VAGINAL EXAM Dilatation (cm): 10.0 Effacement (%): 100 Station: 0 Exam by: Shey. RN Datetime: 10/31/2023 05:00 Resting Tone IUP (mmHg): 120 Intensity IUP (mmHg): 300 Caney Units (mmHg): 180 Datetime: 10/31/2023 03:30 Respirations: 17 Temperature Route: Oral Datetime: 10/31/2023 03:03 MONTEVIDEO UNITS (Computed) Contractions in Ten Minutes: 5 IUPC Average Intensity: 75 IUPC Average Resting Tone: 25 Caney Units (mmHg): 250 Datetime: 10/31/2023 01:26 Patient Position/Activity: Right Lateral Patient Care Comments: peanut ball Datetime: 10/30/2023 21:34 Epidural Procedure: Test Dose Anesthesia Comments: pt tolerated well Datetime: 10/30/2023 21:15 PROCEDURE TIME OUT Procedure Verify: Correct Patient Identity; Correct Side and Site are Marked; Accurate Procedure Co nsent Form; Agreement on Procedure to be Done; Correct Patient Position; Relevant Images and Results are Properly Labeled and Displayed; Addressed Need to Administer Antibiotics or Fluids for Irrigation ; Safety Precautions Based on Patient History or Medication Use ANESTHESIA Anesthesia Plans: Epidural Epidural Positioning: Sitting Datetime: 10/30/2023 20:03 Vital Sign Comments: B/P not correct. cuff not on pt Datetime: 10/30/2023 19:10 COMMUNICATION Communication: Report Given to @ Pau GLM, RN Datetime: 10/30/2023 18:53 I/O Interventions: Up to BR Datetime: 10/30/2023 18:15 Membranes Ruptured Date/Time: 10/30/2023 17:54 Datetime: 10/30/2023 18:03 Pain Coping: Breathing Through Contractions Comfort Measures: Breathing/Relaxation; Family Support Datetime: 10/30/2023 18:00 Monitor Interventions for UA: Sylva Adjusted Datetime: 10/30/2023 17:54 Membrane Status: Ruptured Membranes Rupture Method: Artificial Amniotic Fluid Color: Clear Amniotic Fluid Amount: Large Amniotic Fluid Odor: None Datetime: 10/30/2023 09:49 Vaginal Bleeding: None Cervix, Consistency: Moderate Cervix, Position: Posterior
[2023-11-02 11:53] VITALS: BP 126/76
== END 2023-11-02 11:30 | disposition home or self-care (01) | DRG 807 ==
LOC: WFO 07:55 → FBP 07:57 → WFO 08:10 → FBP 08:11
PROVIDERS: ADMIT Obstetrics & Gynecology; ATTEND Obstetrics & Gynecology
PROC: 10907ZC Drainage of Amniotic Fluid, Therapeutic from Products of Conception, Via Natural or Artificial Opening (ICD-10-PCS; 2023-10-30)
PROC: 3E033VJ Introduction of Other Hormone into Peripheral Vein, Percutaneous Approach (ICD-10-PCS; 2023-10-30)
PROC: 10H07YZ Insertion of Other Device into Products of Conception, Via Natural or Artificial Opening (ICD-10-PCS; 2023-10-30)
PROC: 10E0XZZ Delivery of Products of Conception, External Approach (ICD-10-PCS; principal; 2023-10-31)
PROC: 0KQM0ZZ Repair Perineum Muscle, Open Approach (ICD-10-PCS; 2023-10-31)
DX: O70.1 Second degree perineal laceration during delivery (principal); Z37.0 Single live birth; Z3A.39 39 weeks gestation of pregnancy; O36.63X0 Maternal care for excessive fetal growth, third trimester, not applicable or unspecified; O66.0 Obstructed labor due to shoulder dystocia; O90.81 Anemia of the puerperium; Z23 Encounter for immunization; Z79.899 Other long term (current) drug therapy
CPT/HCPCS: 36415; 59409; 85025; 86850; 86900; 86901; 86920; 90716; A9270; J7120

== ENCOUNTER 2023-11-06 02:02 | Emergency (ER) | payer OTHER ==
[2023-11-06] MEDS ORDERED: KETOROLAC 15 MG/ML VIAL ONE (02:56)
[2023-11-06 05:33] VITALS: BP 123/68; O2SAT 98
[2023-11-06 06:11] LABS: BILIRUBIN,URINE NEGATIVE (NEGATIVE); CLARITY,URINE CLOUDY (CLEAR); GLUCOSE, URINE (UA) NEGATIVE (NEGATIVE); KETONES,URINE (UA) NEGATIVE (NEGATIVE); LEUKOCYTE ESTERASE, URINE LARGE (NEGATIVE); NITRITE,URINE NEGATIVE (NEGATIVE); OCCULT BLOOD,URINE LARGE (NEGATIVE); PROTEIN,URINE 100 mg/dL (NEGATIVE); UROBILINOGEN,URINE 0.2 (NORMAL) E.U./dL (NORMAL)
[2023-11-06 06:12] LABS: BACTERIA,URINE Few /HPF (None Seen); RBC,URINE TNTC /HPF (0-5); SQUAMOUS EPITHELIAL CELL,UR FEW Squamous (<= Few)
[2023-11-06 06:15] LABS: BASOPHILS # (AUTO) 0.1 10^3/uL (0.0-0.1); BASOPHILS % (AUTO) 0.6 %; EOSINOPHILS # (AUTO) 0.5 10^3/uL (0.0-0.7); EOSINOPHILS % (AUTO) 4.8 %; HCT - HEMATOCRIT 31.7 % (37.0-47.0); HGB - HEMOGLOBIN 9.8 g/dL (12.0-16.0); LYMPHOCYTES % (AUTO) 18.4 %; MEAN CORPUSCULAR HEMOGLOBIN 26.5 pg (27.0-31.0); MEAN CORPUSCULAR HGB CONC 30.9 g/dL (32.0-36.0); MEAN CORPUSCULAR VOLUME 85.7 fL (81.0-99.0); MEAN PLATELET VOLUME 9.3 fL (7.9-10.8); MONOCYTES % (AUTO) 9.6 %; NEUTROPHILS # (AUTO) 7.1 10^3/uL (1.5-6.6); NEUTROPHILS % (AUTO) 65.1 %; PLT - PLATELET COUNT 425 10^3/uL (130-450); RED CELL DISTRIBUTION WIDTH 14.6 % (12.0-15.0); WHITE BLOOD COUNT 10.8 x10^3/uL (4.8-10.8)
[2023-11-06 06:17] LABS: BILIRUBIN,TOTAL 0.3 mg/dL (0.2-1.0); CALCIUM 8.9 mg/dL (8.5-10.3); CREATININE 0.7 mg/dL (0.6-1.3); POTASSIUM 3.7 mmol/L (3.5-4.5)
[2023-11-06 06:18] LABS: TOTAL PROTEIN 6.1 g/dL (6.4-8.9)
[2023-11-06 06:36] LABS: ALBUMIN 3.3 g/dL (3.2-5.5); ALBUMIN/GLOBULIN RATIO 1.2 (1.0-2.2)
== END 2023-11-06 03:58 | disposition home or self-care (01) ==
LOC: ED 02:02
DX: O86.20 Urinary tract infection following delivery, unspecified (principal); N39.0 Urinary tract infection, site not specified; R10.31 Right lower quadrant pain; R10.32 Left lower quadrant pain
CPT/HCPCS: 36415; 80053; 81001; 83690; 85025; 87086; 99283; 99284